=== PATIENT | male | born 1995 | race Caucasian/White ===

== ENCOUNTER 2017-07-13 22:38 | Emergency (ER) | payer OTHER ==
[2017-07-13 22:44] VITALS: TEMP 99.5
[2017-07-14] MEDS ORDERED: PERCOCET 325 MG1 TA2 PO (01:36)
[2017-07-14 02:00] VITALS: BP 119/78; PULSE 83
== END 2017-07-14 02:00 | disposition home or self-care (01) ==
LOC: COL.ER 22:38
DX: S82.831A Other fracture of upper and lower end of right fibula, initial encounter for closed fracture (principal); S82.301A Unspecified fracture of lower end of right tibia, initial encounter for closed fracture; W01.198A Fall on same level from slipping, tripping and stumbling with subsequent striking against other object, initial encounter; Y92.320 Baseball field as the place of occurrence of the external cause
CPT/HCPCS: J2704; J7030